=== PATIENT | male | born 1980 | race African-American/Black ===

== ENCOUNTER 2024-01-09 20:03 | Inpatient (IN) | payer MEDICAID ==
[~2024-01-09] VITALS: Ht 172.7 cm; Wt 95.5 kg
[2024-01-09 20:19] VITALS: BP_SYST 129; PULSE 140; RESP 26; TEMP 99.2; O2SAT 100
[2024-01-09 21:13] LABS: HEMOGLOBIN 9.8 g/dL (14.0-18.0); MEAN CORPUSCULAR HEMOGLOBIN 30 pg (27-31); MEAN CORPUSCULAR HGB CONC 34 % (32-36); MEAN CORPUSCULAR VOLUME 89 fL (79.0-98.0); PLATELET COUNT (AUTO) 343 K/uL (130-430); RED BLOOD CELL COUNT(AUTO) 3.25 MIL/uL (4.2-6.2)
[2024-01-09 21:16] LABS: WHITE BLOOD COUNT (AUTO) 21.7 K/uL (4.8-10.8)
[2024-01-09 21:21] LABS: INR 1.1 (0.80-1.20); PROTHROMBIN TIME 11.5 SECS (9.5-12.5)
[2024-01-09 21:23] LABS: ALANINE AMINOTRANSFERASE 53 U/L (12-78); ALBUMIN 2.1 g/dL (3.4-4.8); ANION GAP 11 (5-15); ASPARTATE AMINOTRANSFERASE 80 U/L (10-37); CALCIUM 8.2 mg/dL (8.4-11.0); CARBON DIOXIDE 27 mmol/L (23-29); CHLORIDE 88 mmol/L (98-107); CREATININE 0.93 mg/dL (0.55-1.30); GFR AFRICAN AMERICAN 115 mL/min (>90); GFR NON AFRICAN-AMERICAN 95 mL/min (>90); GLUCOSE 129 mg/dL (74-106); POTASSIUM 3.2 mmol/L (3.5-5.1); SODIUM SERUM 126 mmol/L (136-145); TOTAL BILIRUBIN 0.9 mg/dL (0.0-1.0); TOTAL PROTEIN, SERUM 7.3 g/dL (6.4-8.3); UREA NITROGEN, BLOOD 15 mg/dL (8-21)
[2024-01-09 21:26] LABS: ANISOCYTOSIS 1+; BAND % (MANUAL) 3 % (0-6); BASOPHILS % (MANUAL) 0 % (0-2); EOSINOPHILS % (MANUAL) 0 % (0-7); LYMPHOCYTES % (MANUAL) 2 % (20-46); MONOCYTES % (MANUAL) 2 % (0-11); PLATELET ESTIMATE ADEQUATE (ADEQUATE)
[2024-01-09] MEDS: NS 1000 ML IV.SOLN IV ONE (21:26)
[2024-01-09 21:30] LABS: BILIRUBIN,DIRECT 0.5 mg/dL (0.0-0.3)
[2024-01-09] MEDS ORDERED: PIPERACILLIN/TAZOBACTAM 3.375 GM/VIAL (ZOSYN) IV ONE (21:33)
[2024-01-09] MEDS: PIPERACILLIN/TAZO 3.375 GM in D5W 50 ML IV ONE (21:35)
[2024-01-09 22:29] LABS: BILIRUBIN,URINE NEGATIVE (NEGATIVE); BLOOD, URINE 3+ (NEGATIVE); CLARITY/URINE CLEAR (CLEAR); COLOR,URINE YELLOW (YELLOW); GLUCOSE,URINE NEGATIVE (NEGATIVE); KETONES,URINE NEGATIVE (NEGATIVE); LEUKOCYTE ESTERASE ,URINE NEGATIVE (NEGATIVE); NITRITE, URINE NEGATIVE (NEGATIVE); PROTEIN URINE 2+ (NEGATIVE)
[2024-01-09] MEDS: KETOROLAC TROMETHAMINE 30 MG VIAL IVP ONE (22:30)
[2024-01-09 22:32] LABS: UROBILINOGEN,URINE >=8 (0.2-1.0)
[2024-01-09 22:41] LABS: BARBITURATE, URINE NEGATIVE (NEG <=200); BENZODIAZEPINE, URINE NEGATIVE (NEG <=150); COCAINE, URINE NEGATIVE (NEG <=150); OPIATE, URINE NEGATIVE (NEG <=100); PHENCYCLIDINE SCREEN,URINE NEGATIVE (NEG <=25); URINE METHADONE NEGATIVE (NEG <=200); URINE OXYCODONE SCREEN NEGATIVE (NEG <=100)
[2024-01-09 22:42] LABS: CANNABINOID, URINE POSITIVE (NEG <=50); METHAMPHETAMINES SCREEN,URINE POSITIVE (NEG <=500); UR TRICYCLIC ANTIDEPRESSANTS NEGATIVE (NEG <=300); URINE AMPHETAMINE POSITIVE (NEG <=500)
[2024-01-09 22:56] LABS: BACTERIA,URINE RARE /HPF (None Seen); WBC,URINE 0-3 /HPF (0-3)
[2024-01-09 22:57] LABS: HYALINE CASTS, URINE 0-10 /LPF (None Seen); MUCUS,URINE 1+ /LPF (None Seen)
[2024-01-10] MEDS: HYDROcodone/ACETAMIN 10-325 MG TAB PO ONE (00:02)
[2024-01-10] MEDS: NACL 0.9% 1,000 ML IV ONE (01:20)
[2024-01-10] MEDS: NS 500 ML IV ONE (01:21)
[2024-01-10] MEDS ORDERED: ACETAMINOPHEN 325 MG TABLET PO PRN (01:30)
[2024-01-10] MEDS ORDERED: VANCOMYCIN HCL 1000 MG/VIAL IV ONE (02:47)
[2024-01-10] MEDS: VANCOMYCIN HCL 1 GM/NS PREMIX 250 ML IV ONE (02:51)
[2024-01-10 03:15] VITALS: O2SAT 95
[2024-01-10 03:30] VITALS: BP_SYST 125; PULSE 108; RESP 16; TEMP 97.9
[2024-01-10] MEDS: NACL 0.9% 1,000 ML IV SCH (05:00)
[2024-01-10] MEDS: PIPERACILLIN/TAZOBACTAM 3.375 GM/VIAL (ZOSYN) IV ONE (05:51)
[2024-01-10] MEDS: PIPERACILLIN/TAZO 3.375 GM in NS 50 ML IV SCH ×2 (06:21→11:49)
[2024-01-10 07:00] VITALS: O2SAT 99
[2024-01-10] MEDS: HYDROcodone/ACETAMIN 10-325 MG TAB PO PRN (10:28)
[2024-01-10 10:54] LABS: BASOPHILS # (AUTO) 0.1 K/uL (0.0-0.2); BASOPHILS % (AUTO) 0.4 % (0.0-2.0); EOSINOPHILS # (AUTO) 0.1 K/uL (0.0-0.4); EOSINOPHILS % (AUTO) 0.4 % (0.0-4.0); HEMATOCRIT 26.5 % (36-54); HEMOGLOBIN 8.6 g/dL (14.0-18.0); LYMPHOCYTES # (AUTO) 0.3 K/uL (1.0-5.5); LYMPHOCYTES % (AUTO) 1.6 % (20.5-51.5); MEAN CORPUSCULAR HEMOGLOBIN 30 pg (27-31); MEAN CORPUSCULAR HGB CONC 32 % (32-36); MEAN CORPUSCULAR VOLUME 91 fL (79.0-98.0); MONOCYTES # (AUTO) 0.5 K/uL (0.0-1.0); MONOCYTES % (AUTO) 2.3 % (1.7-9.3); NEUTROPHILS # (AUTO) 19.5 K/uL (1.8-7.7); NEUTROPHILS % (AUTO) 95.3 % (40.0-70.0); PLATELET COUNT (AUTO) 343 K/uL (130-430); RED CELL DISTRIBUTION WIDTH 16.7 % (9.0-15.0); WHITE BLOOD COUNT (AUTO) 20.4 K/uL (4.8-10.8)
[2024-01-10 11:08] VITALS: BP_SYST 139; PULSE 114; RESP 16; TEMP 97.5; O2SAT 96
[2024-01-10 11:11] LABS: CALCIUM 8.1 mg/dL (8.4-11.0); CREATININE 0.68 mg/dL (0.55-1.30)
[2024-01-10 11:14] LABS: POTASSIUM 2.8 mmol/L (3.5-5.1)
[2024-01-10] MEDS: POTASSIUM CHLORIDE 20 MEQ TABLET.ER PO ONE (11:47)
[2024-01-10 15:15] VITALS: BP_SYST 130; PULSE 119; RESP 16; TEMP 97.6; O2SAT 94
[2024-01-10] MEDS: VANCOMYCIN HCL 1.25 GM/NS 250 ML IV SCH (17:38)
[2024-01-10 20:00] VITALS: BP_SYST 126; PULSE 123; RESP 18; TEMP 98.4; O2SAT 100
[2024-01-10] MEDS: POTASSIUM CHLORIDE 20 MEQ TABLET.ER PO SCH (20:56)
[2024-01-10] MEDS: KETOROLAC TROMETHAMINE 15 MG VIAL IVP PRN (20:57)
[2024-01-11 00:30] VITALS: BP_SYST 132; PULSE 114; RESP 18; TEMP 98.6; O2SAT 98
[2024-01-11 07:08] LABS: BASOPHILS % (AUTO) 0.2 % (0.0-2.0); EOSINOPHILS % (AUTO) 0.2 % (0.0-4.0); HEMATOCRIT 27.1 % (36-54); HEMOGLOBIN 8.6 g/dL (14.0-18.0); LYMPHOCYTES # (AUTO) 0.5 K/uL (1.0-5.5); MEAN CORPUSCULAR HEMOGLOBIN 29 pg (27-31); MEAN CORPUSCULAR HGB CONC 32 % (32-36); MEAN CORPUSCULAR VOLUME 91 fL (79.0-98.0); MONOCYTES # (AUTO) 0.8 K/uL (0.0-1.0); MONOCYTES % (AUTO) 3.4 % (1.7-9.3); NEUTROPHILS # (AUTO) 22.5 K/uL (1.8-7.7); PLATELET COUNT (AUTO) 372 K/uL (130-430); RED BLOOD CELL COUNT(AUTO) 2.98 MIL/uL (4.2-6.2); RED CELL DISTRIBUTION WIDTH 16.6 % (9.0-15.0); WHITE BLOOD COUNT (AUTO) 23.9 K/uL (4.8-10.8)
[2024-01-11 07:43] LABS: NEUTROPHILS % (AUTO) 94.2 % (40.0-70.0)
[2024-01-11 07:55] LABS: ALBUMIN 1.6 g/dL (3.4-4.8); CALCIUM 8.1 mg/dL (8.4-11.0); CREATININE 0.67 mg/dL (0.55-1.30); POTASSIUM 3.7 mmol/L (3.5-5.1); TOTAL BILIRUBIN 0.6 mg/dL (0.0-1.0); TOTAL PROTEIN, SERUM 6.2 g/dL (6.4-8.3)
[2024-01-11 08:21] VITALS: BP_SYST 146; PULSE 117; RESP 18; TEMP 98.6; O2SAT 95
[2024-01-11 09:00] VITALS: O2SAT 98
[2024-01-11 11:03] VITALS: BP_SYST 151; PULSE 114; RESP 16; TEMP 96.6; O2SAT 96
[2024-01-11 16:00] VITALS: BP_SYST 148; PULSE 121; RESP 16; TEMP 97.7; O2SAT 98
[2024-01-11] MEDS ORDERED: BISACODYL 5 MG TABLET.DR (DULCOLAX) PO PRN (17:15)
[2024-01-11] MEDS: OXYCODONE/ACETAMINOPHEN *10*mg/325 mg TABLET PO PRN (18:50)
[2024-01-11] MEDS: ENOXAPARIN SODIUM 40 MG/0.4 ML SYRINGE SUBCUT ONE (18:50)
[2024-01-11] MEDS: LACTULOSE 20 GM/30 ML UDC PO ONE (18:50)
[2024-01-11] MEDS: DOCUSATE SODIUM 250 MG CAPSULE PO ONE (18:50)
[2024-01-11 20:00] VITALS: BP_SYST 145; PULSE 125; RESP 16; TEMP 96.3; O2SAT 96
[2024-01-11] MEDS: DOCUSATE SODIUM 250 MG CAPSULE PO SCH (20:39)
[2024-01-12 01:16] VITALS: BP_SYST 134; PULSE 117; RESP 18; TEMP 98.7; O2SAT 96
[2024-01-12 07:12] LABS: BASOPHILS # (AUTO) 0.1 K/uL (0.0-0.2); BASOPHILS % (AUTO) 0.4 % (0.0-2.0); EOSINOPHILS # (AUTO) 0.1 K/uL (0.0-0.4); EOSINOPHILS % (AUTO) 0.3 % (0.0-4.0); HEMOGLOBIN 8.5 g/dL (14.0-18.0); LYMPHOCYTES # (AUTO) 0.9 K/uL (1.0-5.5); LYMPHOCYTES % (AUTO) 3.3 % (20.5-51.5); MEAN CORPUSCULAR HEMOGLOBIN 30 pg (27-31); MEAN CORPUSCULAR HGB CONC 33 % (32-36); MEAN CORPUSCULAR VOLUME 91 fL (79.0-98.0); MONOCYTES # (AUTO) 0.9 K/uL (0.0-1.0); MONOCYTES % (AUTO) 3.6 % (1.7-9.3); NEUTROPHILS # (AUTO) 24.4 K/uL (1.8-7.7); NEUTROPHILS % (AUTO) 92.4 % (40.0-70.0); PLATELET COUNT (AUTO) 426 K/uL (130-430); RED BLOOD CELL COUNT(AUTO) 2.86 MIL/uL (4.2-6.2); RED CELL DISTRIBUTION WIDTH 16.9 % (9.0-15.0); WHITE BLOOD COUNT (AUTO) 26.5 K/uL (4.8-10.8)
[2024-01-12 08:00] VITALS: BP_SYST 145; PULSE 111; RESP 20; TEMP 98; O2SAT 99
[2024-01-12 08:27] LABS: ALBUMIN 1.6 g/dL (3.4-4.8); CREATININE 0.74 mg/dL (0.55-1.30); POTASSIUM 3.3 mmol/L (3.5-5.1); TOTAL BILIRUBIN 0.4 mg/dL (0.0-1.0); TOTAL PROTEIN, SERUM 6.4 g/dL (6.4-8.3)
[2024-01-12] MEDS: ENOXAPARIN SODIUM 40 MG/0.4 ML SYRINGE SUBCUT SCH (08:56)
[2024-01-12] MEDS: LACTULOSE 20 GM/30 ML UDC PO SCH (08:56)
[2024-01-12 12:45] VITALS: BP_SYST 133; PULSE 110; RESP 18; TEMP 97.8; O2SAT 98
[2024-01-12] MEDS ORDERED: IOHEXOL 350 mgI/mL, 150 ML INFUS..BTL IV ONE (15:41)
[2024-01-12 16:39] VITALS: BP_SYST 125; PULSE 106; RESP 18; TEMP 98.2; O2SAT 95
[2024-01-12 20:00] VITALS: BP_SYST 152; PULSE 110; RESP 18; TEMP 99.3; O2SAT 95
[2024-01-13 00:30] VITALS: BP_SYST 138; PULSE 112; RESP 18; TEMP 97.9; O2SAT 99
[2024-01-13 05:00] LABS: BILIRUBIN,URINE NEGATIVE (NEGATIVE); CLARITY/URINE CLEAR (CLEAR); COLOR,URINE YELLOW (YELLOW); GLUCOSE,URINE NEGATIVE (NEGATIVE); KETONES,URINE NEGATIVE (NEGATIVE); LEUKOCYTE ESTERASE ,URINE NEGATIVE (NEGATIVE); NITRITE, URINE NEGATIVE (NEGATIVE); PH,URINE 7.5 (5.0-8.0); PROTEIN URINE NEGATIVE (NEGATIVE)
[2024-01-13 05:48] LABS: ALBUMIN 1.6 g/dL (3.4-4.8); CALCIUM 8.2 mg/dL (8.4-11.0); CREATININE 0.54 mg/dL (0.55-1.30); POTASSIUM 4.2 mmol/L (3.5-5.1); TOTAL BILIRUBIN 0.4 mg/dL (0.0-1.0); TOTAL PROTEIN, SERUM 6.6 g/dL (6.4-8.3)
[2024-01-13 05:48] LABS: BLOOD, URINE TRACE (NEGATIVE)
[2024-01-13 05:49] LABS: BACTERIA,URINE None Seen /HPF (None Seen); WBC,URINE 0-3 /HPF (0-3)
[2024-01-13 07:00] VITALS: O2SAT 98
[2024-01-13] MEDS ORDERED: ONDANSETRON HCL 4 MG/2 ML VIAL IVP PRN (12:00)
[2024-01-13] MEDS ORDERED: HYDROmorphone 1 MG/ML INJ. CARTRIDGE IVP PRN (12:00)
[2024-01-13] MEDS ORDERED: LR 1,000 ML IV.SOLN IV ONE (12:05)
[2024-01-13] MEDS ORDERED: NS IRRIG SOLN 1000 ML IR ONE (12:05)
[2024-01-13] MEDS ORDERED: PROPOFOL 200MG/ 20ML VIAL (DIPRIVAN) IV ONE (12:05)
[2024-01-13] MEDS ORDERED: METOCLOPRAMIDE HCL 10 MG/2 ML VIAL ONE (12:05)
[2024-01-13] MEDS ORDERED: BUPIVACAINE /PF 0.25% 10 ML VIAL INJ ONE (12:05)
[2024-01-13] MEDS ORDERED: SEVOFLURANE 15 MIN GAS INH ONE (12:05)
[2024-01-13] MEDS ORDERED: fentaNYL CITRATE/PF 100 MCG/2 ML AMP ONE (12:05)
[2024-01-13] MEDS ORDERED: ONDANSETRON HCL 4 MG/2 ML VIAL ONE (12:05)
[2024-01-13] MEDS ORDERED: KETOROLAC TROMETHAMINE 30 MG VIAL ONE (12:05)
[2024-01-13] MEDS ORDERED: MIDAZOLAM HCL 2 MG/2 ML VIAL (VERSED) ONE (12:05)
[2024-01-13 12:41] VITALS: BP_SYST 142; PULSE 98; RESP 18; TEMP 98.4; O2SAT 99
[2024-01-13] MEDS: BALSAM PERU/CASTOR OIL 56.7 GM OINT...G. TP SCH (14:43)
[2024-01-13] MEDS: LR 1,000 ML IV SCH (14:44)
[2024-01-13] MEDS: HYDROmorphone 2 MG/ML VIAL IVP PRN (14:49)
[2024-01-13 18:44] VITALS: BP_SYST 150; PULSE 104; RESP 18; TEMP 97.7; O2SAT 98
[2024-01-13 21:00] VITALS: BP_SYST 152; PULSE 114; RESP 20; TEMP 99; O2SAT 98
[2024-01-13] MEDS: MORPHINE 4 MG INJ. 4 MG/ML VIAL IVP PRN (21:03)
[2024-01-14 00:42] VITALS: BP_SYST 136; PULSE 113; RESP 18; TEMP 98.6; O2SAT 100
[2024-01-14] MEDS: HYDROcodone/ACETAMIN 5-325 MG TAB (NORCO/ VICODIN) PO PRN (02:38)
[2024-01-14 07:15] LABS: BASOPHILS % (AUTO) 0.2 % (0.0-2.0); EOSINOPHILS # (AUTO) 0.1 K/uL (0.0-0.4); EOSINOPHILS % (AUTO) 0.7 % (0.0-4.0); HEMATOCRIT 26.5 % (36-54); HEMOGLOBIN 8.7 g/dL (14.0-18.0); LYMPHOCYTES # (AUTO) 1.1 K/uL (1.0-5.5); LYMPHOCYTES % (AUTO) 10.3 % (20.5-51.5); MEAN CORPUSCULAR HEMOGLOBIN 30 pg (27-31); MEAN CORPUSCULAR HGB CONC 33 % (32-36); MEAN CORPUSCULAR VOLUME 91 fL (79.0-98.0); MONOCYTES # (AUTO) 0.6 K/uL (0.0-1.0); MONOCYTES % (AUTO) 5.4 % (1.7-9.3); NEUTROPHILS # (AUTO) 9.1 K/uL (1.8-7.7); NEUTROPHILS % (AUTO) 83.4 % (40.0-70.0); PLATELET COUNT (AUTO) 458 K/uL (130-430); RED BLOOD CELL COUNT(AUTO) 2.91 MIL/uL (4.2-6.2); RED CELL DISTRIBUTION WIDTH 16.7 % (9.0-15.0); WHITE BLOOD COUNT (AUTO) 10.9 K/uL (4.8-10.8)
[2024-01-14 07:45] LABS: ALBUMIN 1.7 g/dL (3.4-4.8); CALCIUM 8.1 mg/dL (8.4-11.0); CREATININE 0.43 mg/dL (0.55-1.30); POTASSIUM 4.8 mmol/L (3.5-5.1); TOTAL BILIRUBIN 0.3 mg/dL (0.0-1.0); TOTAL PROTEIN, SERUM 6.5 g/dL (6.4-8.3)
[2024-01-14] MEDS: HYDROmorphone 1 MG/ML INJ. CARTRIDGE IVP PRN (08:06)
[2024-01-14 12:45] VITALS: BP_SYST 140; PULSE 109; RESP 19; TEMP 98.8; O2SAT 98
[2024-01-14 16:17] VITALS: BP_SYST 137; PULSE 110; RESP 18; TEMP 98.7; O2SAT 99
[2024-01-14 18:08] VITALS: O2SAT 99
[2024-01-14 19:00] VITALS: O2SAT 98
[2024-01-14 20:00] VITALS: BP_SYST 147; PULSE 96; RESP 18; TEMP 98.6; O2SAT 99
[2024-01-14] MEDS: LUBIPROSTONE 24 MCG CAPSULE PO SCH (20:13)
[2024-01-15 00:26] VITALS: BP_SYST 152; PULSE 112; RESP 16; TEMP 98.1; O2SAT 98
[2024-01-15 07:44] LABS: BASOPHILS % (AUTO) 0.2 % (0.0-2.0); EOSINOPHILS # (AUTO) 0.1 K/uL (0.0-0.4); EOSINOPHILS % (AUTO) 0.6 % (0.0-4.0); HEMATOCRIT 31.2 % (36-54); HEMOGLOBIN 10.1 g/dL (14.0-18.0); LYMPHOCYTES # (AUTO) 0.9 K/uL (1.0-5.5); LYMPHOCYTES % (AUTO) 9.5 % (20.5-51.5); MEAN CORPUSCULAR HEMOGLOBIN 30 pg (27-31); MEAN CORPUSCULAR HGB CONC 32 % (32-36); MEAN CORPUSCULAR VOLUME 92 fL (79.0-98.0); MONOCYTES # (AUTO) 0.5 K/uL (0.0-1.0); MONOCYTES % (AUTO) 5.4 % (1.7-9.3); NEUTROPHILS % (AUTO) 84.3 % (40.0-70.0); PLATELET COUNT (AUTO) 522 K/uL (130-430); RED BLOOD CELL COUNT(AUTO) 3.41 MIL/uL (4.2-6.2); RED CELL DISTRIBUTION WIDTH 16.8 % (9.0-15.0); WHITE BLOOD COUNT (AUTO) 9.5 K/uL (4.8-10.8)
[2024-01-15 08:00] VITALS: BP_SYST 159; PULSE 89; RESP 18; TEMP 98.1; O2SAT 99
[2024-01-15 08:04] LABS: ALBUMIN 2.1 g/dL (3.4-4.8); CALCIUM 8.5 mg/dL (8.4-11.0); CREATININE 0.58 mg/dL (0.55-1.30); TOTAL BILIRUBIN 0.4 mg/dL (0.0-1.0); TOTAL PROTEIN, SERUM 7.6 g/dL (6.4-8.3)
[2024-01-15 12:41] VITALS: BP_SYST 153; PULSE 98; RESP 17; TEMP 98.2; O2SAT 98
[2024-01-15] MEDS: BISACODYL 5 MG TABLET.DR (DULCOLAX) PO ONE (14:00)
[2024-01-15 16:20] VITALS: BP_SYST 150; PULSE 92; RESP 18; TEMP 98; O2SAT 99
[2024-01-15] MEDS: LACTULOSE 20 GM/30 ML UDC PO ONE (17:02)
[2024-01-15 19:00] VITALS: O2SAT 99
[2024-01-15 20:00] VITALS: BP_SYST 130; PULSE 96; RESP 18; TEMP 98.6; O2SAT 98
[2024-01-15] MEDS: ONDANSETRON HCL 4 MG/2 ML VIAL IVP PRN (23:12)
[2024-01-16 00:39] VITALS: BP_SYST 154; PULSE 106; RESP 18; TEMP 97.1; O2SAT 98
[2024-01-16 08:10] VITALS: BP_SYST 144; PULSE 106; RESP 16; TEMP 98.1; O2SAT 96
[2024-01-16 09:15] VITALS: O2SAT 96
[2024-01-16 12:13] VITALS: BP_SYST 148; PULSE 99; RESP 17; TEMP 97.5; O2SAT 97
[2024-01-16] MEDS ORDERED: NALOXONE HCL 0.4 MG/ML AMP (NARCAN) IVP PRN (12:15)
[2024-01-16] MEDS: methocarbamoL 500 MG TABLET PO SCH (12:41)
[2024-01-16] MEDS: HYDROcodone/ACETAMIN 10-325 MG TAB PO PRN (12:43)
[2024-01-16 16:08] VITALS: BP_SYST 145; PULSE 101; RESP 16; TEMP 98; O2SAT 96
[2024-01-16 20:00] VITALS: BP_SYST 140; PULSE 108; RESP 16; TEMP 97.4; O2SAT 100
[2024-01-16] MEDS: TEMAZEPAM 15 MG CAPSULE PO PRN (21:33)
[2024-01-16] MEDS: OXYCODONE/ACETAMINOPHEN *10*mg/325 mg TABLET PO PRN (21:42)
[2024-01-17] VITALS: BP_SYST 131; PULSE 110; RESP 16; TEMP 97.8; O2SAT 99
[2024-01-17 07:16] LABS: BASOPHILS % (AUTO) 0.3 % (0.0-2.0); EOSINOPHILS % (AUTO) 0.6 % (0.0-4.0); HEMATOCRIT 32.7 % (36-54); HEMOGLOBIN 10.8 g/dL (14.0-18.0); LYMPHOCYTES # (AUTO) 0.9 K/uL (1.0-5.5); MEAN CORPUSCULAR HEMOGLOBIN 30 pg (27-31); MEAN CORPUSCULAR HGB CONC 33 % (32-36); MEAN CORPUSCULAR VOLUME 91 fL (79.0-98.0); MONOCYTES # (AUTO) 0.5 K/uL (0.0-1.0); NEUTROPHILS # (AUTO) 6.3 K/uL (1.8-7.7); NEUTROPHILS % (AUTO) 81.1 % (40.0-70.0); PLATELET COUNT (AUTO) 574 K/uL (130-430); RED BLOOD CELL COUNT(AUTO) 3.61 MIL/uL (4.2-6.2); RED CELL DISTRIBUTION WIDTH 17.1 % (9.0-15.0); WHITE BLOOD COUNT (AUTO) 7.8 K/uL (4.8-10.8)
[2024-01-17 07:42] LABS: ALBUMIN 2.4 g/dL (3.4-4.8); CALCIUM 8.7 mg/dL (8.4-11.0); CREATININE 0.58 mg/dL (0.55-1.30); POTASSIUM 3.9 mmol/L (3.5-5.1); TOTAL BILIRUBIN 0.3 mg/dL (0.0-1.0); TOTAL PROTEIN, SERUM 7.6 g/dL (6.4-8.3)
[2024-01-17 08:00] VITALS: O2SAT 99
[2024-01-17 11:06] VITALS: BP_SYST 135; PULSE 110; RESP 15; TEMP 98.4; O2SAT 98
[2024-01-17 16:07] VITALS: BP_SYST 129; PULSE 105; RESP 15; TEMP 98.3; O2SAT 98
[2024-01-17 20:26] VITALS: BP_SYST 152; PULSE 110; RESP 20; TEMP 98.4; O2SAT 97
[2024-01-18] VITALS (7 sets, daily range): BP systolic 121–143; PULSE 101–118; RESP 16–20; TEMP 98.2–98.9; O2SAT 95–98
[2024-01-18] MEDS: cefTRIAXone 1 GM VIAL ONE (06:05)
[2024-01-18 06:59] LABS: BASOPHILS % (AUTO) 0.4 % (0.0-2.0); EOSINOPHILS % (AUTO) 0.4 % (0.0-4.0); HEMATOCRIT 33.1 % (36-54); HEMOGLOBIN 10.6 g/dL (14.0-18.0); LYMPHOCYTES # (AUTO) 1.4 K/uL (1.0-5.5); LYMPHOCYTES % (AUTO) 15.4 % (20.5-51.5); MEAN CORPUSCULAR HEMOGLOBIN 29 pg (27-31); MEAN CORPUSCULAR HGB CONC 32 % (32-36); MEAN CORPUSCULAR VOLUME 91 fL (79.0-98.0); MONOCYTES # (AUTO) 0.6 K/uL (0.0-1.0); MONOCYTES % (AUTO) 6.4 % (1.7-9.3); NEUTROPHILS # (AUTO) 7.2 K/uL (1.8-7.7); NEUTROPHILS % (AUTO) 77.4 % (40.0-70.0); PLATELET COUNT (AUTO) 655 K/uL (130-430); RED BLOOD CELL COUNT(AUTO) 3.63 MIL/uL (4.2-6.2); RED CELL DISTRIBUTION WIDTH 16.8 % (9.0-15.0); WHITE BLOOD COUNT (AUTO) 9.3 K/uL (4.8-10.8)
[2024-01-18 07:28] LABS: ALBUMIN 2.6 g/dL (3.4-4.8); CALCIUM 9.1 mg/dL (8.4-11.0); CREATININE 0.62 mg/dL (0.55-1.30); POTASSIUM 3.7 mmol/L (3.5-5.1); TOTAL BILIRUBIN 0.3 mg/dL (0.0-1.0)
[2024-01-19 01:30] VITALS: BP_SYST 136; PULSE 91; RESP 18; TEMP 97.6; O2SAT 98
[2024-01-19 07:24] LABS: BASOPHILS % (AUTO) 0.4 % (0.0-2.0); EOSINOPHILS # (AUTO) 0.1 K/uL (0.0-0.4); EOSINOPHILS % (AUTO) 0.7 % (0.0-4.0); HEMATOCRIT 32.7 % (36-54); HEMOGLOBIN 10.8 g/dL (14.0-18.0); LYMPHOCYTES # (AUTO) 1.3 K/uL (1.0-5.5); MEAN CORPUSCULAR HEMOGLOBIN 30 pg (27-31); MEAN CORPUSCULAR HGB CONC 33 % (32-36); MEAN CORPUSCULAR VOLUME 91 fL (79.0-98.0); MONOCYTES # (AUTO) 0.5 K/uL (0.0-1.0); MONOCYTES % (AUTO) 6.2 % (1.7-9.3); NEUTROPHILS # (AUTO) 6.5 K/uL (1.8-7.7); NEUTROPHILS % (AUTO) 77.7 % (40.0-70.0); PLATELET COUNT (AUTO) 639 K/uL (130-430); RED CELL DISTRIBUTION WIDTH 16.7 % (9.0-15.0); WHITE BLOOD COUNT (AUTO) 8.3 K/uL (4.8-10.8)
[2024-01-19 07:57] LABS: ALBUMIN 2.6 g/dL (3.4-4.8); CALCIUM 8.7 mg/dL (8.4-11.0); CREATININE 0.62 mg/dL (0.55-1.30); POTASSIUM 3.5 mmol/L (3.5-5.1); TOTAL BILIRUBIN 0.2 mg/dL (0.0-1.0); TOTAL PROTEIN, SERUM 7.8 g/dL (6.4-8.3)
[2024-01-19 08:00] VITALS: O2SAT 100
[2024-01-19 12:28] VITALS: BP_SYST 130; PULSE 122; RESP 18; TEMP 97.7; O2SAT 98
[2024-01-19 15:28] VITALS: BP_SYST 151; PULSE 112; RESP 16; TEMP 96.7; O2SAT 100
[2024-01-19] MEDS: AMPICILLIN SODIUM/SULBACTAM NA 3 GM in NS 100 ML IV SCH (18:26)
[2024-01-19 20:05] VITALS: BP_SYST 142; PULSE 120; RESP 20; TEMP 97.9; O2SAT 99
[2024-01-19 21:55] VITALS: O2SAT 99
[2024-01-20 00:58] VITALS: BP_SYST 142; PULSE 100; RESP 18; TEMP 98.8; O2SAT 100
[2024-01-20 05:52] LABS: BILIRUBIN,URINE NEGATIVE (NEGATIVE); BLOOD, URINE NEGATIVE (NEGATIVE); CLARITY/URINE CLEAR (CLEAR); COLOR,URINE YELLOW (YELLOW); GLUCOSE,URINE NEGATIVE (NEGATIVE); KETONES,URINE NEGATIVE (NEGATIVE); LEUKOCYTE ESTERASE ,URINE NEGATIVE (NEGATIVE); NITRITE, URINE NEGATIVE (NEGATIVE); PROTEIN URINE NEGATIVE (NEGATIVE)
[2024-01-20 06:04] LABS: BARBITURATE, URINE NEGATIVE (NEG <=200); BENZODIAZEPINE, URINE POSITIVE (NEG <=150); CANNABINOID, URINE NEGATIVE (NEG <=50); COCAINE, URINE NEGATIVE (NEG <=150); METHAMPHETAMINES SCREEN,URINE NEGATIVE (NEG <=500); OPIATE, URINE NEGATIVE (NEG <=100); PHENCYCLIDINE SCREEN,URINE NEGATIVE (NEG <=25); URINE AMPHETAMINE NEGATIVE (NEG <=500); URINE METHADONE NEGATIVE (NEG <=200); URINE OXYCODONE SCREEN POSITIVE (NEG <=100)
[2024-01-20 06:05] LABS: UR TRICYCLIC ANTIDEPRESSANTS NEGATIVE (NEG <=300)
[2024-01-20 08:00] VITALS: O2SAT 97
[2024-01-20 08:04] VITALS: BP_SYST 144; PULSE 120; RESP 20; TEMP 98; O2SAT 99
[2024-01-20 12:50] VITALS: BP_SYST 146; PULSE 115; RESP 19; TEMP 97.8; O2SAT 99
[2024-01-20 16:30] VITALS: BP_SYST 119; PULSE 113; RESP 19; TEMP 98; O2SAT 94
[2024-01-20] MEDS: busPIRone HCL 5 MG TABLET PO ONE (17:17)
[2024-01-20] MEDS: METOPROLOL TARTRATE 25 MG TABLET PO ONE (17:18)
[2024-01-20 20:01] VITALS: BP_SYST 126; PULSE 97; RESP 18; TEMP 98.1; O2SAT 99
[2024-01-20] MEDS: busPIRone HCL 5 MG TABLET PO SCH (21:03)
[2024-01-20] MEDS: METOPROLOL TARTRATE 25 MG TABLET PO SCH (21:04)
[2024-01-21 00:01] VITALS: BP_SYST 129; PULSE 90; RESP 19; TEMP 98.2; O2SAT 98
[2024-01-21 04:01] VITALS: BP_SYST 129; PULSE 101; RESP 18; TEMP 98.1; O2SAT 99
[2024-01-21 08:00] VITALS: BP_SYST 145; PULSE 111; RESP 17; TEMP 98; O2SAT 97
[2024-01-21 12:46] VITALS: BP_SYST 133; PULSE 105; RESP 19; TEMP 98; O2SAT 98
[2024-01-21 16:54] VITALS: BP_SYST 130; PULSE 101; RESP 18; TEMP 98.2; O2SAT 99
[2024-01-21 20:00] VITALS: BP_SYST 139; PULSE 104; RESP 17; TEMP 97.8; O2SAT 99
[2024-01-22] VITALS: BP_SYST 121; PULSE 101; RESP 17; TEMP 98; O2SAT 97
[2024-01-22 08:00] VITALS: O2SAT 96
[2024-01-22 08:29] VITALS: BP_SYST 135; PULSE 111; RESP 19; TEMP 98.4; O2SAT 98
[2024-01-22 12:00] VITALS: BP_SYST 133; PULSE 110; RESP 20; TEMP 98.3; O2SAT 95
[2024-01-22 17:00] VITALS: BP_SYST 133; PULSE 101; RESP 20; TEMP 98.6; O2SAT 100
[2024-01-22 20:00] VITALS: BP_SYST 125; PULSE 105; RESP 18; TEMP 98.2; O2SAT 98
[2024-01-23] VITALS: BP_SYST 119; PULSE 102; RESP 17; TEMP 98; O2SAT 97
[2024-01-23 08:40] VITALS: BP_SYST 134; PULSE 116; RESP 16; TEMP 99.5; O2SAT 98
[2024-01-23 12:36] VITALS: BP_SYST 135; PULSE 86; RESP 18; TEMP 98; O2SAT 100
[2024-01-23 16:15] VITALS: BP_SYST 135; PULSE 121; RESP 19; TEMP 98; O2SAT 98
[2024-01-23 20:00] VITALS: BP_SYST 145; PULSE 115; RESP 18; TEMP 98.2; O2SAT 97
[2024-01-24] VITALS (7 sets, daily range): BP systolic 110–132; PULSE 107–122; RESP 16–19; TEMP 97.8–99.2; O2SAT 97–99
[2024-01-24 06:50] LABS: BASOPHILS # (AUTO) 0.1 K/uL (0.0-0.2); BASOPHILS % (AUTO) 0.7 % (0.0-2.0); EOSINOPHILS % (AUTO) 0.2 % (0.0-4.0); HEMATOCRIT 34.4 % (36-54); HEMOGLOBIN 11.3 g/dL (14.0-18.0); LYMPHOCYTES # (AUTO) 1.2 K/uL (1.0-5.5); LYMPHOCYTES % (AUTO) 10.8 % (20.5-51.5); MEAN CORPUSCULAR HEMOGLOBIN 30 pg (27-31); MEAN CORPUSCULAR HGB CONC 33 % (32-36); MEAN CORPUSCULAR VOLUME 91 fL (79.0-98.0); MONOCYTES # (AUTO) 0.6 K/uL (0.0-1.0); MONOCYTES % (AUTO) 5.3 % (1.7-9.3); NEUTROPHILS # (AUTO) 8.9 K/uL (1.8-7.7); PLATELET COUNT (AUTO) 493 K/uL (130-430); RED BLOOD CELL COUNT(AUTO) 3.78 MIL/uL (4.2-6.2); RED CELL DISTRIBUTION WIDTH 17.5 % (9.0-15.0); WHITE BLOOD COUNT (AUTO) 10.8 K/uL (4.8-10.8)
[2024-01-24 07:43] LABS: ALBUMIN 2.8 g/dL (3.4-4.8); CALCIUM 9.1 mg/dL (8.4-11.0); CREATININE 0.52 mg/dL (0.55-1.30); POTASSIUM 3.9 mmol/L (3.5-5.1); TOTAL BILIRUBIN 0.4 mg/dL (0.0-1.0); TOTAL PROTEIN, SERUM 7.5 g/dL (6.4-8.3)
[2024-01-24] MEDS: BISACODYL 5 MG TABLET.DR (DULCOLAX) PO PRN (11:19)
[2024-01-25] VITALS (7 sets, daily range): BP systolic 110–135; PULSE 101–120; RESP 16–18; TEMP 97.9–98.8; O2SAT 97–99
[2024-01-26 00:38] VITALS: BP_SYST 128; PULSE 100; RESP 14; TEMP 98; O2SAT 98
[2024-01-26 07:59] VITALS: BP_SYST 132; PULSE 110; RESP 18; TEMP 97.7; O2SAT 99
[2024-01-26 09:35] VITALS: O2SAT 99
[2024-01-26 11:20] VITALS: BP_SYST 125; PULSE 108; RESP 16; TEMP 98; O2SAT 97
[2024-01-26 12:32] VITALS: BP_SYST 122; PULSE 102; RESP 17; TEMP 98; O2SAT 99
[2024-01-26] MEDS: AMOXICILLIN/CLAVULANATE POTASSIUM 500 MG TABLET PO SCH (14:41)
[2024-01-26 16:09] VITALS: BP_SYST 130; PULSE 101; RESP 15; TEMP 97.8; O2SAT 96
[2024-01-26] MEDS ORDERED: AMOX-423 PO (16:49)
== END 2024-01-26 17:05 | disposition home or self-care (01) | DRG 720 ==
LOC: SED 20:03 → STU 01-10 01:22 → SMU 01-15 14:31 → STU 01-19 21:11
PROVIDERS: ADMIT Internal Medicine; ATTEND Internal Medicine
PROC: 0JBM0ZZ Excision of Left Upper Leg Subcutaneous Tissue and Fascia, Open Approach (ICD-10-PCS; principal; 2024-01-13 11:01)
DX: A41.9 Sepsis, unspecified organism (principal); G92.8 Other toxic encephalopathy; E43 Unspecified severe protein-calorie malnutrition; T65.891A Toxic effect of other specified substances, accidental (unintentional), initial encounter; L02.416 Cutaneous abscess of left lower limb; E87.1 Hypo-osmolality and hyponatremia; L03.116 Cellulitis of left lower limb; E87.6 Hypokalemia; D64.9 Anemia, unspecified; F41.9 Anxiety disorder, unspecified; F19.10 Other psychoactive substance abuse, uncomplicated; E66.9 Obesity, unspecified; Z79.899 Other long term (current) drug therapy; Z74.01 Bed confinement status; Z87.891 Personal history of nicotine dependence; Z88.8 Allergy status to other drugs, medicaments and biological substances; Z68.32 Body mass index [BMI] 32.0-32.9, adult
CPT/HCPCS: 36415; 71045; 72192-TC; 73552; 73590; 73700-TC; 73706; 76942; 80048; 80053; 80076; 80202; 80307; 81000; 81001; 81003; 81015; 83605; 83880; 84484; 85007; 85025; 85027; 85610; 85651; 85730; 86886; 86900; 86901; 86920; 87040; 87070; 87075; 87081; 87086; 93005; 93306; 93970; 97110-GP; 97116-GP; 97530-GP; 99291; G0378; J0295; J0696; J1170; J1650; J1885; J2270; J2405; J2543; J2704; J2765; J3010; J3370; J3465; J3490; J7060; J7120; Q9967